=== PATIENT | male | born 1955 | race Caucasian/White ===

== ENCOUNTER → 2016-11-16 | Outpatient (CLI) | payer OTHER | LOC: RAD 09:16 | DX: M25.532 Pain in left wrist (principal); M25.531 Pain in right wrist; M06.9 Rheumatoid arthritis, unspecified; M19.032 Primary osteoarthritis, left wrist ==

== ENCOUNTER → 2016-12-06 | Outpatient (CLI) | payer OTHER | LOC: LAB 14:21 | DX: M06.9 Rheumatoid arthritis, unspecified (principal); I63.8 Other cerebral infarction; N52.9 Male erectile dysfunction, unspecified; K90.89 Other intestinal malabsorption; R20.2 Paresthesia of skin ==

== ENCOUNTER → 2017-03-10 | Outpatient (CLI) | payer OTHER | LOC: RAD 11:23 | DX: M19.011 Primary osteoarthritis, right shoulder (principal) ==

== ENCOUNTER → 2017-08-29 | Outpatient (CLI) | payer OTHER | LOC: RAD 10:17 | DX: J43.9 Emphysema, unspecified (principal); R91.8 Other nonspecific abnormal finding of lung field | CPT/HCPCS: Q9967 ==

== ENCOUNTER → 2017-09-28 | Outpatient (CLI) | payer OTHER ==
[2017-09-28 14:06] LABS: ALBUMIN 4.2 g/dL (3.5-5.0); BUN/CREATININE RATIO 11.8 (6.0-26.0); CALCIUM 9.3 mg/dL (8.4-10.2); POTASSIUM 4.4 mmol/L (3.6-5.0); TOTAL BILIRUBIN 0.7 mg/dL (0.2-1.3)
[2017-09-28 14:18] LABS: BASO # 0.1 (0.02-0.10); EOS # 0.1 (0.04-0.40); EOS % 1.1 % (0.0-4.0); HEMATOCRIT 46.6 % (42.0-52.0); HEMOGLOBIN 15.7 g/dL (13.5-18.0); LYMPH# 3.3 (1.50-4.00); MEAN CELL VOLUME 90 fl (78-100); MEAN CORPUSCULAR HEMOGLOBIN 30 pg (27-31); MEAN CORPUSCULAR HGB CONC 34 g/dL (33-37); MEAN PLATELET VOLUME 9.4 fl (7.4-10.4); MONO # 1.1 (0.20-0.80); NEU # 4.6 (1.40-6.50); PLATELET COUNT 398 K/mm3 (130-400); RED BLOOD COUNT 5.19 M/mm3 (4.20-5.60); RED CELL DISTRIBUTION WIDTH 13.9 % (11.5-14.5); WHITE BLOOD COUNT 9.2 K/mm3 (4.8-10.8)
[2017-09-28 22:46] LABS: C-REACTIVE PROTEIN XXX
[2017-09-30 15:46] LABS: ANTI-CYC CITRULLINATED PEPT AB >250.0 U (())
== END ==
LOC: RAD 13:17
PROVIDERS: Surgery
DX: J98.4 Other disorders of lung (principal); K44.9 Diaphragmatic hernia without obstruction or gangrene; R63.4 Abnormal weight loss; Z98.890 Other specified postprocedural states

== ENCOUNTER 2017-12-17 23:28 | Inpatient (IN) | payer OTHER ==
[~2017-12-17] VITALS: Ht 188 cm; Wt 65.7 kg
[2017-12-17 23:58] LABS: HEMATOCRIT 38.9 % (42.0-52.0); HEMOGLOBIN 13.4 g/dL (13.5-18.0); MEAN CELL VOLUME 85 fl (78-100); MEAN CORPUSCULAR HEMOGLOBIN 29 pg (27-31); MEAN CORPUSCULAR HGB CONC 34 g/dL (33-37); RED BLOOD COUNT 4.57 M/mm3 (4.20-5.60); RED CELL DISTRIBUTION WIDTH 12.3 % (11.5-14.5); WHITE BLOOD COUNT 11.7 K/mm3 (4.8-10.8)
[2017-12-18] VITALS (8 sets, daily range): BP systolic 94–139; BP diastolic 48–81
[2017-12-18 00:11] LABS: PLATELET COUNT 692 K/mm3 (130-400)
[2017-12-18 00:12] LABS: ALBUMIN 3.1 g/dL (3.5-5.0); BUN/CREATININE RATIO 12.2 (6.0-26.0); CALCIUM 8.4 mg/dL (8.4-10.2); POTASSIUM 3.6 mmol/L (3.6-5.0); TOTAL BILIRUBIN 0.3 mg/dL (0.2-1.3); TOTAL PROTEIN 7.1 g/dL (6.3-8.2)
[2017-12-18] MEDS ORDERED: ALPRAZOLAM ER1 MG PO (00:17)
[2017-12-18] MEDS ORDERED: PROAIR HFA0.09 MG/AC IH (00:17)
[2017-12-18] MEDS ORDERED: HUMIRA20 MG/0.2 SQ (00:17)
[2017-12-18] MEDS ORDERED: SYMBICORT1 AE3 IH (00:17)
[2017-12-18 00:24] LABS: BAND 1 % (0-10); LYMPHOCYTE 16 % (20-51); MONOCYTE 14 % (3-10); NEUTROPHILS 69 % (42-75)
[2017-12-18 00:33] LABS: URINE APPEARANCE CLEAR; URINE BILIRUBIN NEGATIVE (NEGATIVE); URINE BLOOD TRACE (NEGATIVE); URINE COLOR YELLOW; URINE GLUCOSE NEGATIVE (NEGATIVE); URINE KETONE NEGATIVE (NEGATIVE); URINE LEUKOCYTE ESTERASE NEGATIVE (NEGATIVE); URINE NITRATE NEGATIVE (NEGATIVE); URINE PROTEIN(semi-quant) NEGATIVE (NEGATIVE); URINE UROBILINOGEN NORMAL (NORMAL); URINE WBC 0-1 /hpf (0-3)
[2017-12-19 03:08] VITALS: BP 104/58
[2017-12-19 06:19] LABS: BUN/CREATININE RATIO 10.8 (6.0-26.0); CALCIUM 8.2 mg/dL (8.4-10.2); POTASSIUM 3.9 mmol/L (3.6-5.0)
[2017-12-19 06:23] VITALS: BP 117/73
[2017-12-19 06:25] LABS: HEMATOCRIT 38.2 % (42.0-52.0); HEMOGLOBIN 12.8 g/dL (13.5-18.0); MEAN CELL VOLUME 86 fl (78-100); MEAN CORPUSCULAR HEMOGLOBIN 29 pg (27-31); MEAN CORPUSCULAR HGB CONC 34 g/dL (33-37); MEAN PLATELET VOLUME 8.4 fl (7.4-10.4); RED BLOOD COUNT 4.47 M/mm3 (4.20-5.60); RED CELL DISTRIBUTION WIDTH 12.6 % (11.5-14.5); WHITE BLOOD COUNT 10.5 K/mm3 (4.8-10.8)
[2017-12-19 06:59] LABS: BAND 2 % (0-10); LYMPHOCYTE 29 % (20-51); MONOCYTE 17 % (3-10); NEUTROPHILS 51 % (42-75); PLATELET COUNT 644 K/mm3 (130-400)
[2017-12-19 11:00] VITALS: BP 109/69
[2017-12-19 15:10] VITALS: BP 92/54
[2017-12-19 18:54] VITALS: BP 107/63
[2017-12-19 23:12] VITALS: BP 109/62
[2017-12-20] VITALS (7 sets, daily range): BP systolic 89–129; BP diastolic 47–76
[2017-12-20 09:42] LABS: HEMOGLOBIN 11.8 g/dL (13.5-18.0); MEAN CELL VOLUME 86 fl (78-100); MEAN CORPUSCULAR HEMOGLOBIN 29 pg (27-31); MEAN CORPUSCULAR HGB CONC 34 g/dL (33-37); MEAN PLATELET VOLUME 8.1 fl (7.4-10.4); RED BLOOD COUNT 4.08 M/mm3 (4.20-5.60); RED CELL DISTRIBUTION WIDTH 12.6 % (11.5-14.5); WHITE BLOOD COUNT 10.3 K/mm3 (4.8-10.8)
[2017-12-20 09:44] LABS: BUN/CREATININE RATIO 8.2 (6.0-26.0); CALCIUM 8.3 mg/dL (8.4-10.2); POTASSIUM 3.7 mmol/L (3.6-5.0)
[2017-12-20 10:00] LABS: PLATELET COUNT 584 K/mm3 (130-400)
[2017-12-20 10:17] LABS: BAND 2 % (0-10); LYMPHOCYTE 25 % (20-51); MONOCYTE 13 % (3-10); NEUTROPHILS 60 % (42-75)
[2017-12-21 03:10] VITALS: BP 139/77
[2017-12-21 06:11] VITALS: BP 135/75
[2017-12-21 11:09] VITALS: BP 108/68
[2017-12-21 14:57] VITALS: BP 101/54
[2017-12-21 18:05] VITALS: BP 127/73
[2017-12-21 23:22] VITALS: BP 132/77
[2017-12-22 03:20] VITALS: BP 116/67
[2017-12-22 06:27] VITALS: BP 125/72
[2017-12-22 10:59] VITALS: BP 93/58
[2017-12-22 11:38] LABS: BUN/CREATININE RATIO 13.5 (6.0-26.0); CALCIUM 8.3 mg/dL (8.4-10.2); POTASSIUM 3.8 mmol/L (3.6-5.0)
[2017-12-22 12:18] LABS: HEMATOCRIT 41.3 % (42.0-52.0); HEMOGLOBIN 13.4 g/dL (13.5-18.0); MEAN CELL VOLUME 83 fl (78-100); MEAN CORPUSCULAR HEMOGLOBIN 27 pg (27-31); MEAN CORPUSCULAR HGB CONC 32 g/dL (33-37); MEAN PLATELET VOLUME 10.1 fl (7.4-10.4); PLATELET COUNT 392 K/mm3 (130-400); RED CELL DISTRIBUTION WIDTH 14.7 % (11.5-14.5); WHITE BLOOD COUNT 9.3 K/mm3 (4.8-10.8)
[2017-12-22 12:20] LABS: LYMPHOCYTE 21 % (20-51); MONOCYTE 12 % (3-10); NEUTROPHILS 66 % (42-75)
[2017-12-22 14:14] VITALS: BP 93/58
== END 2017-12-22 12:55 | disposition short-term general hospital (02) | DRG 178 ==
LOC: ED 23:28 → MED/SURG 12-18 01:06
PROVIDERS: Nurse Practitioner Primary Care; Physician Assistant; ADMIT Family Medicine
DX: J69.0 Pneumonitis due to inhalation of food and vomit (principal); E87.1 Hypo-osmolality and hyponatremia; E44.0 Moderate protein-calorie malnutrition; Z68.1 Body mass index [BMI] 19.9 or less, adult; M06.9 Rheumatoid arthritis, unspecified; J43.9 Emphysema, unspecified; Z87.891 Personal history of nicotine dependence; K22.2 Esophageal obstruction; K21.9 Gastro-esophageal reflux disease without esophagitis; K22.70 Barrett's esophagus without dysplasia; F41.8 Other specified anxiety disorders
CPT/HCPCS: J0456; J0696; J1650; J1885; J7030; J7050; Q9967

== ENCOUNTER → 2018-01-05 | Outpatient (CLI) | payer OTHER ==
[2017-12-22 14:14] VITALS: BP 93/58
[~2018-01-05] MED LIST: ALPRAZOLAM ER1 MG PO; HUMIRA20 MG/0.2 SQ; PROAIR HFA0.09 MG/AC IH; SYMBICORT1 AE3 IH
[2018-01-05 09:09] LABS: HEMATOCRIT 36.1 % (42.0-52.0); HEMOGLOBIN 11.8 g/dL (13.5-18.0); MEAN CELL VOLUME 85 fl (78-100); MEAN CORPUSCULAR HEMOGLOBIN 28 pg (27-31); MEAN CORPUSCULAR HGB CONC 33 g/dL (33-37); RED BLOOD COUNT 4.26 M/mm3 (4.20-5.60); RED CELL DISTRIBUTION WIDTH 13.1 % (11.5-14.5); WHITE BLOOD COUNT 12.2 K/mm3 (4.8-10.8)
[2018-01-05 09:13] LABS: ALBUMIN 3.1 g/dL (3.5-5.0); BUN/CREATININE RATIO 12.5 (6.0-26.0); CALCIUM 8.7 mg/dL (8.4-10.2); POTASSIUM 3.7 mmol/L (3.6-5.0); TOTAL BILIRUBIN 0.4 mg/dL (0.2-1.3); TOTAL PROTEIN 6.8 g/dL (6.3-8.2)
[2018-01-05 09:17] LABS: PLATELET COUNT 796 K/mm3 (130-400)
[2018-01-05 09:27] LABS: BAND 5 % (0-10); LYMPHOCYTE 17 % (20-51); MONOCYTE 10 % (3-10); NEUTROPHILS 68 % (42-75)
[2018-01-05 10:39] LABS: ERYTHROCYTE SEDIMENTATION RATE 70 mm/hr (0-20)
== END ==
LOC: LAB 08:48
PROVIDERS: Internal Medicine
DX: J69.0 Pneumonitis due to inhalation of food and vomit (principal); M06.9 Rheumatoid arthritis, unspecified

== ENCOUNTER 2018-01-19 14:27 | Emergency (ER) | payer OTHER ==
[~2018-01-19] VITALS: Ht 185.4 cm; Wt 63.6 kg
[2018-01-19] MEDS ORDERED: PROTONIX TR40 M1 PO (15:02)
[2018-01-19] MEDS ORDERED: PEPCID 20MG TAB20 MG PO (15:03)
[2018-01-19 16:06] LABS: HEMOGLOBIN 11.1 g/dL (13.5-18.0); MEAN CELL VOLUME 83 fl (78-100); MEAN CORPUSCULAR HEMOGLOBIN 27 pg (27-31); MEAN CORPUSCULAR HGB CONC 33 g/dL (33-37); MEAN PLATELET VOLUME 8.3 fl (7.4-10.4); RED CELL DISTRIBUTION WIDTH 13.9 % (11.5-14.5); WHITE BLOOD COUNT 9.8 K/mm3 (4.8-10.8)
[2018-01-19 16:12] LABS: ALBUMIN 3.3 g/dL (3.5-5.0); CALCIUM 8.8 mg/dL (8.4-10.2); POTASSIUM 4.1 mmol/L (3.6-5.0); TOTAL BILIRUBIN 0.6 mg/dL (0.2-1.3); TOTAL PROTEIN 7.3 g/dL (6.3-8.2)
[2018-01-19 16:43] LABS: LYMPHOCYTE 24 % (20-51); NEUTROPHILS 62 % (42-75); PLATELET COUNT 599 K/mm3 (130-400)
[2018-01-19 16:44] LABS: MONOCYTE 12 % (3-10)
[2018-01-19 17:35] LABS: PH-URINE 5.5 (5.0 - 8.0); URINE APPEARANCE CLEAR; URINE BILIRUBIN NEGATIVE (NEGATIVE); URINE BLOOD NEGATIVE (NEGATIVE); URINE COLOR YELLOW; URINE GLUCOSE NEGATIVE (NEGATIVE); URINE KETONE 1+ (NEGATIVE); URINE LEUKOCYTE ESTERASE NEGATIVE (NEGATIVE); URINE MUCUS PRESENT (NOT PRESENT); URINE NITRATE NEGATIVE (NEGATIVE); URINE PROTEIN(semi-quant) NEGATIVE (NEGATIVE); URINE UROBILINOGEN NORMAL (NORMAL); URINE WBC 0-1 /hpf (0-3)
[2018-01-19 17:41] VITALS: BP 110/70
== END 2018-01-19 17:58 | disposition home or self-care (01) ==
LOC: ED 14:27
PROVIDERS: Nurse Practitioner Family
DX: K59.00 Constipation, unspecified (principal); Z87.01 Personal history of pneumonia (recurrent); Z86.73 Personal history of transient ischemic attack (TIA), and cerebral infarction without residual deficits; K21.9 Gastro-esophageal reflux disease without esophagitis; J43.9 Emphysema, unspecified; Z79.82 Long term (current) use of aspirin; Z79.899 Other long term (current) drug therapy
CPT/HCPCS: J2270; J2405; J7030

== ENCOUNTER → 2018-10-18 | Outpatient (CLI) | payer OTHER ==
[~2018-10-18] MED LIST changes: +PEPCID 20MG TAB20 MG PO; +PROTONIX TR40 M1 PO
[2018-10-18 13:13] LABS: BASO # 0.1 (0.02-0.10); EOS % 0.2 % (0.0-4.0); HEMATOCRIT 45.4 % (42.0-52.0); HEMOGLOBIN 14.8 g/dL (13.5-18.0); LYMPH# 2.5 (1.50-4.00); MEAN CELL VOLUME 87 fl (78-100); MEAN CORPUSCULAR HEMOGLOBIN 28 pg (27-31); MEAN CORPUSCULAR HGB CONC 33 g/dL (33-37); MEAN PLATELET VOLUME 8.6 fl (7.4-10.4); MONO # 1.2 (0.20-0.80); NEU # 6.8 (1.40-6.50); RED BLOOD COUNT 5.23 M/mm3 (4.20-5.60); RED CELL DISTRIBUTION WIDTH 13.3 % (11.5-14.5); WHITE BLOOD COUNT 10.7 K/mm3 (4.8-10.8)
[2018-10-18 13:14] LABS: PLATELET COUNT 552 K/mm3 (130-400)
[2018-10-18 13:34] LABS: ALBUMIN 3.8 g/dL (3.4-4.8); CALCIUM 10.4 mg/dL (8.8-10.0); POTASSIUM 4.6 mmol/L (3.5-5.1); TOTAL BILIRUBIN 0.4 mg/dL (0.2-1.2); TOTAL PROTEIN 7.9 g/dL (6.2-8.1)
[2018-10-18 14:14] LABS: ERYTHROCYTE SEDIMENTATION RATE 52 mm/hr (0-20)
== END ==
LOC: LAB 12:41
PROVIDERS: Internal Medicine
DX: Z00.00 Encounter for general adult medical examination without abnormal findings (principal)

== ENCOUNTER → 2019-02-15 | Outpatient (CLI) | payer OTHER ==
[2019-02-15 16:15] LABS: URINE APPEARANCE CLEAR; URINE BILIRUBIN NEGATIVE (NEGATIVE); URINE BLOOD NEGATIVE (NEGATIVE); URINE COLOR YELLOW; URINE GLUCOSE NEGATIVE (NEGATIVE); URINE KETONE NEGATIVE (NEGATIVE); URINE LEUKOCYTE ESTERASE NEGATIVE (NEGATIVE); URINE NITRATE NEGATIVE (NEGATIVE); URINE PROTEIN(semi-quant) TRACE mg/dL (NEGATIVE); URINE UROBILINOGEN NORMAL (NORMAL)
[2019-02-15 16:16] LABS: URINE MUCUS PRESENT (NOT PRESENT)
== END ==
LOC: LAB 15:43
PROVIDERS: Family Medicine
DX: F41.1 Generalized anxiety disorder (principal); M06.9 Rheumatoid arthritis, unspecified; R53.83 Other fatigue

== ENCOUNTER → 2019-03-04 | Outpatient (CLI) | payer OTHER | LOC: RAD 16:54 | DX: J84.10 Pulmonary fibrosis, unspecified (principal); R91.1 Solitary pulmonary nodule; R63.4 Abnormal weight loss ==

== ENCOUNTER → 2019-03-08 | Outpatient (CLI) | payer OTHER ==
[2019-03-08 15:38] LABS: BASO # 0.1 (0.02-0.10); EOS # 0.1 (0.04-0.40); EOS % 0.7 % (0.0-4.0); HEMATOCRIT 44.1 % (42.0-52.0); HEMOGLOBIN 14.8 g/dL (13.5-18.0); LYMPH# 3.1 (1.50-4.00); MEAN CELL VOLUME 84 fl (78-100); MEAN CORPUSCULAR HEMOGLOBIN 28 pg (27-31); MEAN CORPUSCULAR HGB CONC 34 g/dL (33-37); MEAN PLATELET VOLUME 8.7 fl (7.4-10.4); MONO # 1.5 (0.20-0.80); NEU # 7.6 (1.40-6.50); PLATELET COUNT 437 K/mm3 (130-400); RED BLOOD COUNT 5.23 M/mm3 (4.20-5.60); RED CELL DISTRIBUTION WIDTH 16.1 % (11.5-14.5); WHITE BLOOD COUNT 12.4 K/mm3 (4.8-10.8)
[2019-03-08 15:54] LABS: ALBUMIN 3.9 g/dL (3.4-4.8)
[2019-03-08 15:55] LABS: POTASSIUM 4.6 mmol/L (3.5-5.1)
[2019-03-08 15:56] LABS: CALCIUM 9.9 mg/dL (8.3-10.5)
[2019-03-08 15:57] LABS: TOTAL PROTEIN 7.9 g/dL (6.2-8.1)
[2019-03-08 15:59] LABS: TOTAL BILIRUBIN 0.4 mg/dL (0.2-1.2)
[2019-03-08 16:59] LABS: ERYTHROCYTE SEDIMENTATION RATE 33 mm/hr (0-20)
== END ==
LOC: LAB 14:53 → RAD 14:53
PROVIDERS: Internal Medicine
DX: J69.0 Pneumonitis due to inhalation of food and vomit (principal); J43.9 Emphysema, unspecified; M06.9 Rheumatoid arthritis, unspecified; D64.9 Anemia, unspecified; R91.1 Solitary pulmonary nodule
CPT/HCPCS: Q9967

== ENCOUNTER → 2019-04-04 | Outpatient (CLI) | payer OTHER | LOC: RAD 09:28 | DX: J98.4 Other disorders of lung (principal); A15.0 Tuberculosis of lung ==

== ENCOUNTER → 2019-04-08 | Outpatient (CLI) | payer OTHER ==
[2019-04-08 15:01] LABS: HEMATOCRIT 40.8 % (42.0-52.0); HEMOGLOBIN 13.2 g/dL (13.5-18.0); MEAN CELL VOLUME 83 fl (78-100); MEAN CORPUSCULAR HEMOGLOBIN 27 pg (27-31); MEAN CORPUSCULAR HGB CONC 32 g/dL (33-37); MEAN PLATELET VOLUME 8.1 fl (7.4-10.4); RED BLOOD COUNT 4.89 M/mm3 (4.20-5.60); RED CELL DISTRIBUTION WIDTH 14.6 % (11.5-14.5); WHITE BLOOD COUNT 9.9 K/mm3 (4.8-10.8)
[2019-04-08 15:03] LABS: ALBUMIN 3.2 g/dL (3.4-4.8)
[2019-04-08 15:04] LABS: POTASSIUM 4.2 mmol/L (3.5-5.1)
[2019-04-08 15:05] LABS: CALCIUM 9.1 mg/dL (8.3-10.5)
[2019-04-08 15:06] LABS: TOTAL PROTEIN 7.4 g/dL (6.2-8.1)
[2019-04-08 15:08] LABS: TOTAL BILIRUBIN 0.3 mg/dL (0.2-1.2)
[2019-04-08 15:10] LABS: PLATELET COUNT 644 K/mm3 (130-400)
[2019-04-08 15:12] LABS: BAND 4 % (0-10); LYMPHOCYTE 30 % (20-51); MONOCYTE 18 % (3-10); NEUTROPHILS 47 % (42-75)
[2019-04-08 15:59] LABS: ERYTHROCYTE SEDIMENTATION RATE 68 mm/hr (0-20)
== END ==
LOC: LAB 14:42
PROVIDERS: Nurse Practitioner Family
DX: J69.0 Pneumonitis due to inhalation of food and vomit (principal); M06.9 Rheumatoid arthritis, unspecified

== ENCOUNTER → 2019-04-09 | Outpatient (CLI) | payer OTHER | LOC: RAD 09:20 | DX: J43.9 Emphysema, unspecified (principal); J84.89 Other specified interstitial pulmonary diseases | CPT/HCPCS: Q9967 ==

== ENCOUNTER → 2019-04-26 | Outpatient (CLI) | payer OTHER ==
[2019-04-26 11:43] LABS: HEMATOCRIT 39.9 % (42.0-52.0); HEMOGLOBIN 12.9 g/dL (13.5-18.0); MEAN CELL VOLUME 84 fl (78-100); MEAN CORPUSCULAR HEMOGLOBIN 27 pg (27-31); MEAN CORPUSCULAR HGB CONC 32 g/dL (33-37); RED BLOOD COUNT 4.75 M/mm3 (4.20-5.60); RED CELL DISTRIBUTION WIDTH 14.5 % (11.5-14.5); WHITE BLOOD COUNT 11.8 K/mm3 (4.8-10.8)
[2019-04-26 11:53] LABS: ALBUMIN 3.5 g/dL (3.4-4.8); POTASSIUM 4.2 mmol/L (3.5-5.1)
[2019-04-26 11:54] LABS: CALCIUM 9.8 mg/dL (8.3-10.5)
[2019-04-26 11:55] LABS: TOTAL PROTEIN 8.1 g/dL (6.2-8.1)
[2019-04-26 11:57] LABS: TOTAL BILIRUBIN 0.3 mg/dL (0.2-1.2)
[2019-04-26 12:26] LABS: PLATELET COUNT 621 K/mm3 (130-400)
[2019-04-26 12:27] LABS: LYMPHOCYTE 26 % (20-51); MONOCYTE 9 % (3-10); NEUTROPHILS 62 % (42-75)
[2019-04-26 12:45] LABS: ERYTHROCYTE SEDIMENTATION RATE 67 mm/hr (0-20)
== END ==
LOC: LAB 11:24
PROVIDERS: Internal Medicine
DX: A15.0 Tuberculosis of lung (principal); R63.4 Abnormal weight loss

== ENCOUNTER → 2019-06-10 | Outpatient (CLI) | payer OTHER ==
[2019-06-07 16:35] VITALS: BP 96/59
[~2019-06-10] MED LIST changes: +ALPRAZOLAM1 MG PEG; +AMIKACIN S1000 MG/4 IJ; +AZITHROMYC200 MG/5 M PEG; +ETHAMBUTOL HCL100 MG PEG; +GOOD SENSE OMEP20 MG PEG; +IBU600 MG PEG; +LOSARTAN POTASS25 MG PEG; +MIRALAX17 GM PEG; +MYLANTA MAXIMU355 M1 PEG; +OXYCODONE H5 MG/5 M2 PO; +PLAQUENIL200 MG PEG; +PREDNISONE10 MG PEG; +PROBIOTIC1 EAC1 PEG; +RIFADIN PEG; +ROBITUSSIN10 ML/CU1 PEG; +SENOKOT S 50 MG1 TAB PEG; +SODIUM CHLORIDE1 GM PEG; +TYLENOL325 M1 PEG; +ULTRAM50 M1 PEG; +VOLTAREN GEL1% TP
[2019-06-10 17:13] LABS: HEMATOCRIT 30.7 % (42.0-52.0); HEMOGLOBIN 9.8 g/dL (13.5-18.0); MEAN CELL VOLUME 85 fl (78-100); MEAN CORPUSCULAR HEMOGLOBIN 27 pg (27-31); MEAN CORPUSCULAR HGB CONC 32 g/dL (33-37); MEAN PLATELET VOLUME 8.4 fl (7.4-10.4); RED BLOOD COUNT 3.62 M/mm3 (4.20-5.60); RED CELL DISTRIBUTION WIDTH 15.1 % (11.5-14.5); WHITE BLOOD COUNT 10.9 K/mm3 (4.8-10.8)
[2019-06-10 17:14] LABS: PLATELET COUNT 564 K/mm3 (130-400)
[2019-06-10 17:17] LABS: ALBUMIN 2.7 g/dL (3.4-4.8)
[2019-06-10 17:18] LABS: CALCIUM 8.9 mg/dL (8.3-10.5)
[2019-06-10 17:19] LABS: TOTAL PROTEIN 7.3 g/dL (6.2-8.1)
[2019-06-10 17:20] LABS: LYMPHOCYTE 15 % (20-51); MONOCYTE 14 % (3-10); NEUTROPHILS 69 % (42-75)
[2019-06-10 17:21] LABS: TOTAL BILIRUBIN 0.3 mg/dL (0.2-1.2)
== END ==
LOC: LAB 16:35
DX: A31.0 Pulmonary mycobacterial infection (principal)

== ENCOUNTER → 2019-06-12 | Outpatient (CLI) | payer OTHER ==
[2019-06-10 17:27] VITALS: BP 86/52
[2019-06-12 16:11] LABS: ALBUMIN 2.7 g/dL (3.4-4.8); POTASSIUM 4.6 mmol/L (3.5-5.1)
[2019-06-12 16:14] LABS: TOTAL PROTEIN 7.2 g/dL (6.2-8.1)
[2019-06-12 16:15] LABS: TOTAL BILIRUBIN 0.3 mg/dL (0.2-1.2)
== END ==
LOC: LAB 15:50
PROVIDERS: Internal Medicine
DX: A31.0 Pulmonary mycobacterial infection (principal)

== ENCOUNTER 2019-06-14 10:43 | Outpatient (RCR) | payer OTHER ==
[2019-06-12 16:55] VITALS: BP 94/49
== END 2019-06-14 11:15 | disposition still patient (30) ==
LOC: SPEECH 10:43
DX: J69.0 Pneumonitis due to inhalation of food and vomit (principal); K22.2 Esophageal obstruction

== ENCOUNTER → 2019-06-17 | Outpatient (CLI) | payer OTHER ==
[2019-06-14 12:48] VITALS: BP 98/54
[2019-06-17 16:17] LABS: HEMOGLOBIN 9.4 g/dL (13.5-18.0); MEAN CELL VOLUME 85 fl (78-100); MEAN CORPUSCULAR HEMOGLOBIN 27 pg (27-31); MEAN CORPUSCULAR HGB CONC 31 g/dL (33-37); MEAN PLATELET VOLUME 8.1 fl (7.4-10.4); RED BLOOD COUNT 3.54 M/mm3 (4.20-5.60); RED CELL DISTRIBUTION WIDTH 15.3 % (11.5-14.5); WHITE BLOOD COUNT 13.2 K/mm3 (4.8-10.8)
[2019-06-17 16:25] LABS: ALBUMIN 2.8 g/dL (3.4-4.8); POTASSIUM 4.7 mmol/L (3.5-5.1)
[2019-06-17 16:27] LABS: CALCIUM 7.7 mg/dL (8.3-10.5)
[2019-06-17 16:28] LABS: TOTAL PROTEIN 7.4 g/dL (6.2-8.1)
[2019-06-17 16:30] LABS: TOTAL BILIRUBIN 0.3 mg/dL (0.2-1.2)
[2019-06-17 16:43] LABS: PLATELET COUNT 589 K/mm3 (130-400)
[2019-06-17 16:44] LABS: LYMPHOCYTE 11 % (20-51); MONOCYTE 13 % (3-10); NEUTROPHILS 74 % (42-75)
== END ==
LOC: LAB 15:56
PROVIDERS: Internal Medicine
DX: A31.0 Pulmonary mycobacterial infection (principal)

== ENCOUNTER → 2019-06-19 | Outpatient (CLI) | payer OTHER ==
[2019-06-17 16:38] VITALS: BP 99/58
[2019-06-19 16:29] LABS: ALBUMIN 2.7 g/dL (3.4-4.8); POTASSIUM 4.2 mmol/L (3.5-5.1)
[2019-06-19 16:30] LABS: CALCIUM 8.8 mg/dL (8.3-10.5)
[2019-06-19 16:32] LABS: TOTAL PROTEIN 7.2 g/dL (6.2-8.1)
[2019-06-19 16:33] LABS: TOTAL BILIRUBIN 0.3 mg/dL (0.2-1.2)
== END ==
LOC: LAB 16:12
DX: Z01.89 Encounter for other specified special examinations (principal)

== ENCOUNTER → 2019-11-05 | Outpatient (CLI) | payer OTHER ==
[2019-06-19 17:09] VITALS: BP 98/58
== END ==
LOC: LAB 09:57
DX: Z01.818 Encounter for other preprocedural examination (principal); Z20.828 Contact with and (suspected) exposure to other viral communicable diseases

== ENCOUNTER → 2019-11-28 | Outpatient (CLI) | payer OTHER ==
[2019-06-19 17:09] VITALS: BP 98/58
== END ==
LOC: LAB 12:44
DX: A31.0 Pulmonary mycobacterial infection (principal)

== ENCOUNTER → 2019-12-06 | Outpatient (CLI) | payer OTHER ==
[2019-06-19 17:09] VITALS: BP 98/58
== END ==
LOC: LAB 10:29
DX: Z01.812 Encounter for preprocedural laboratory examination (principal); Z20.828 Contact with and (suspected) exposure to other viral communicable diseases

== ENCOUNTER → 2020-01-08 | Outpatient (CLI) | payer OTHER ==
[2019-06-19 17:09] VITALS: BP 98/58
== END ==
LOC: LAB 09:18
DX: Z20.828 Contact with and (suspected) exposure to other viral communicable diseases (principal)

== ENCOUNTER → 2020-02-07 | Outpatient (CLI) | payer OTHER ==
[2019-06-19 17:09] VITALS: BP 98/58
== END ==
LOC: AMSURD 14:59
DX: A31.0 Pulmonary mycobacterial infection (principal); B49 Unspecified mycosis

== ENCOUNTER 2020-02-24 13:00 | Outpatient (RCR) | payer OTHER ==
[2019-06-19 17:09] VITALS: BP 98/58
== END 2020-02-24 13:30 | disposition still patient (30) ==
LOC: PT 13:00
DX: M05.79 Rheumatoid arthritis with rheumatoid factor of multiple sites without organ or systems involvement (principal)

== ENCOUNTER → 2020-02-24 | Outpatient (CLI) | payer OTHER ==
[2019-06-19 17:09] VITALS: BP 98/58
[2020-02-24 15:10] LABS: PH-URINE 8.5 (5.0 - 8.0); URINE APPEARANCE CLEAR; URINE BILIRUBIN NEGATIVE (NEGATIVE); URINE BLOOD TRACE (NEGATIVE); URINE COLOR YELLOW; URINE GLUCOSE NEGATIVE (NEGATIVE); URINE KETONE NEGATIVE (NEGATIVE); URINE LEUKOCYTE ESTERASE NEGATIVE (NEGATIVE); URINE NITRATE NEGATIVE (NEGATIVE); URINE PROTEIN(semi-quant) 1+ mg/dL (NEGATIVE); URINE UROBILINOGEN NORMAL (NORMAL); URINE WBC 0-1 /hpf (0-3)
== END ==
LOC: LAB 14:45
DX: R30.0 Dysuria (principal); R35.8 Other polyuria

== ENCOUNTER → 2020-02-27 | Outpatient (CLI) | payer OTHER ==
[2019-06-19 17:09] VITALS: BP 98/58
[2020-02-27 13:54] LABS: PH-URINE 7.5 (5.0 - 8.0); URINE APPEARANCE CLEAR; URINE BILIRUBIN NEGATIVE (NEGATIVE); URINE BLOOD TRACE (NEGATIVE); URINE COLOR YELLOW; URINE GLUCOSE NEGATIVE (NEGATIVE); URINE KETONE NEGATIVE (NEGATIVE); URINE LEUKOCYTE ESTERASE NEGATIVE (NEGATIVE); URINE NITRATE NEGATIVE (NEGATIVE); URINE PROTEIN(semi-quant) 1+ mg/dL (NEGATIVE); URINE UROBILINOGEN NORMAL (NORMAL); URINE WBC 0-1 /hpf (0-3)
== END ==
LOC: LAB 13:25
PROVIDERS: Internal Medicine
DX: Z12.5 Encounter for screening for malignant neoplasm of prostate (principal); N30.00 Acute cystitis without hematuria

== ENCOUNTER → 2020-03-05 | Outpatient (CLI) | payer OTHER ==
[2019-06-19 17:09] VITALS: BP 98/58
== END ==
LOC: LAB 07:54
DX: Z20.828 Contact with and (suspected) exposure to other viral communicable diseases (principal)

== ENCOUNTER 2020-07-15 16:00 | Emergency (ER) | payer BC ==
[~2020-07-15 16:00] MED LIST changes: -ALPRAZOLAM1 MG PEG; +ALPRAZOLAM1 MG PO; -ETHAMBUTOL HCL100 MG PEG; +ETHAMBUTOL HCL100 MG PO; -LOSARTAN POTASS25 MG PEG; +LOSARTAN POTASS25 MG PO; -PLAQUENIL200 MG PEG; +PLAQUENIL200 MG PO; -RIFADIN PEG; +RIFADIN PO; -ULTRAM50 M1 PEG; +ULTRAM50 M1 PO
[2020-07-15] MEDS ORDERED: PREDNISONE 5MG5 MG PO (16:41)
[2020-07-15] MEDS ORDERED: ZITHROMAX500 M2 PO (16:49)
[2020-07-15] MEDS ORDERED: CLOFAZIMINE (16:50)
[2020-07-15] MEDS ORDERED: AZULFIDINE500 M1 PO (16:52)
[2020-07-15 16:53] LABS: HEMATOCRIT 36.2 % (42.0-52.0); HEMOGLOBIN 11.3 g/dL (13.5-18.0); MEAN CELL VOLUME 77 fl (78-100); MEAN CORPUSCULAR HEMOGLOBIN 24 pg (27-31); MEAN CORPUSCULAR HGB CONC 31 g/dL (33-37); RED BLOOD COUNT 4.73 M/mm3 (4.20-5.60); RED CELL DISTRIBUTION WIDTH 16.7 % (11.5-14.5); WHITE BLOOD COUNT 17.6 K/mm3 (4.8-10.8)
[2020-07-15 16:57] LABS: LYMPHOCYTE 10 % (20-51); MONOCYTE 10 % (3-10); NEUTROPHILS 80 % (42-75); PLATELET COUNT 572 K/mm3 (130-400)
[2020-07-15 17:03] LABS: POTASSIUM 4.5 mmol/L (3.5-5.1)
[2020-07-15] MEDS ORDERED: NORCO 325 MG-51 TA1 PO ×2 (17:55→17:57)
[2020-07-15 18:25] VITALS: BP 120/71
== END 2020-07-15 18:35 | disposition home or self-care (01) ==
LOC: ED 16:00
PROVIDERS: Physician Assistant
DX: M25.551 Pain in right hip (principal); D72.829 Elevated white blood cell count, unspecified; I10 Essential (primary) hypertension; J45.909 Unspecified asthma, uncomplicated; M06.9 Rheumatoid arthritis, unspecified; Z79.52 Long term (current) use of systemic steroids
CPT/HCPCS: J1885

== ENCOUNTER → 2020-08-26 | Outpatient (CLI) | payer BC ==
[~2020-08-26] MED LIST changes: +AZULFIDINE500 M1 PO; +CLOFAZIMINE; +NORCO 325 MG-51 TA1 PO; +PREDNISONE 5MG5 MG PO; +ZITHROMAX500 M2 PO
[2020-08-26 23:16] LABS: HEPATITIS B CORE AB TOTAL Negative (()); HEPATITIS B SURFACE ANTIBODY <2.0 (()); HEPATITIS B SURFACE ANTIGEN Negative (Negative); HEPATITIS C VIRUS ANTIBODY Negative (Negative)
[2020-08-27 14:38] LABS: TB GOLD INTERPRETATION.TB GOLD Negative (Negative)
== END ==
LOC: LAB 08:33
DX: M05.79 Rheumatoid arthritis with rheumatoid factor of multiple sites without organ or systems involvement (principal)

== ENCOUNTER → 2020-10-20 | Outpatient (CLI) | payer BC | LOC: RAD 08:36 | DX: J43.9 Emphysema, unspecified (principal); T14.8XXA Other injury of unspecified body region, initial encounter; J47.9 Bronchiectasis, uncomplicated; Z98.890 Other specified postprocedural states; Z96.89 Presence of other specified functional implants ==

== ENCOUNTER → 2020-11-02 | Outpatient (CLI) | payer BC ==
[2020-11-04 09:41] LABS: ALBUMIN 3.3 g/dL (3.4-4.8); POTASSIUM 4.9 mmol/L (3.5-5.1)
[2020-11-04 09:42] LABS: CALCIUM 8.8 mg/dL (8.3-10.5)
[2020-11-04 09:44] LABS: TOTAL PROTEIN 6.9 g/dL (6.2-8.1)
[2020-11-04 09:45] LABS: TOTAL BILIRUBIN 0.3 mg/dL (0.2-1.2)
[2020-11-04 09:50] LABS: EOS # 0.07 (0.04-0.40); EOS % 0.7 % (0.0-4.0); HEMATOCRIT 34.9 % (42.0-52.0); HEMOGLOBIN 10.9 g/dL (13.5-18.0); LYMPH# 1.53 (1.50-4.00); MEAN CELL VOLUME 80 fl (78-100); MEAN CORPUSCULAR HEMOGLOBIN 25 pg (27-31); MEAN CORPUSCULAR HGB CONC 31 g/dL (33-37); MEAN PLATELET VOLUME 9.2 fl (7.4-10.4); MONO # 0.52 (0.20-0.80); NEU # 7.49 (1.40-6.50); PLATELET COUNT 679 K/mm3 (130-400); RED BLOOD COUNT 4.35 M/mm3 (4.20-5.60); RED CELL DISTRIBUTION WIDTH 18.5 % (11.5-14.5); WHITE BLOOD COUNT 9.8 K/mm3 (4.8-10.8)
== END ==
LOC: LAB 15:36
DX: A49.8 Other bacterial infections of unspecified site (principal); S21.101D Unspecified open wound of right front wall of thorax without penetration into thoracic cavity, subsequent encounter

== ENCOUNTER → 2020-11-10 | Outpatient (CLI) | payer BC | LOC: LAB 15:36 | DX: S21.101D Unspecified open wound of right front wall of thorax without penetration into thoracic cavity, subsequent encounter (principal); B96.5 Pseudomonas (aeruginosa) (mallei) (pseudomallei) as the cause of diseases classified elsewhere; J43.9 Emphysema, unspecified ==

== ENCOUNTER → 2020-11-11 | Outpatient (CLI) | payer BC ==
[2020-11-11 16:18] LABS: BASO # 0.09 (0.02-0.10); EOS # 0.08 (0.04-0.40); EOS % 0.8 % (0.0-4.0); HEMOGLOBIN 11.5 g/dL (13.5-18.0); LYMPH# 1.04 (1.50-4.00); MEAN CELL VOLUME 80 fl (78-100); MEAN CORPUSCULAR HEMOGLOBIN 25 pg (27-31); MEAN CORPUSCULAR HGB CONC 32 g/dL (33-37); MEAN PLATELET VOLUME 9.1 fl (7.4-10.4); MONO # 0.45 (0.20-0.80); NEU # 7.82 (1.40-6.50); RED BLOOD COUNT 4.52 M/mm3 (4.20-5.60); RED CELL DISTRIBUTION WIDTH 18.8 % (11.5-14.5); WHITE BLOOD COUNT 9.5 K/mm3 (4.8-10.8)
[2020-11-11 16:45] LABS: PLATELET COUNT 506 K/mm3 (130-400)
[2020-11-11 17:11] LABS: ALBUMIN 3.4 g/dL (3.4-4.8)
[2020-11-11 17:13] LABS: CALCIUM 8.7 mg/dL (8.3-10.5)
[2020-11-11 17:14] LABS: TOTAL PROTEIN 7.1 g/dL (6.2-8.1)
[2020-11-11 17:16] LABS: TOTAL BILIRUBIN 0.3 mg/dL (0.2-1.2)
== END ==
LOC: LAB 15:42
PROVIDERS: Internal Medicine
DX: S21.101D Unspecified open wound of right front wall of thorax without penetration into thoracic cavity, subsequent encounter (principal); A49.8 Other bacterial infections of unspecified site